=== PATIENT | female | born 1995 | race Hispanic/Latino ===

== ENCOUNTER 2023-04-09 01:44 | Emergency (ER) | payer OTHER, SELFPAY ==
[2023-04-09 01:46] VITALS: BP 135/60; PULSE 90; RESP 16; TEMP 36.3; O2SAT 100
[2023-04-09 02:47] VITALS: BP 120/78; PULSE 84; RESP 20; O2SAT 100
--- NOTE | 2023-04-09 02:51 | ED.PREGNANCY ---
HPI - General Chief complaint: Vaginal Bleeding <Bright Quan DO - Last Filed: 04/09/23 07:38> Stated complaint: 9 weeks , vaginal bleeding <Bright Quan DO - Last Filed: 04/09/23 07:38> Time Seen by Provider: 04/09/23 02:38 <Bright Quan DO - Last Filed: 04/09/23 07:38> Source: patient <Bright Quan DO - Last Filed: 04/09/23 07:38> Limitations: no limitations <Bright Quan DO - Last Filed: 04/09/23 07:38> History of Present Illness HPI Narrative: Patient is a 27-year-old female present to the emergency department complaining of vaginal bleeding. Patient states that she is approximately 9 weeks and is known to [facility] and taking vitamins and has had an ultrasound already performed and has no coming following appointment in a couple weeks on April 28 and states that approximate 11 PM when she was having sex afterwards she noticed some vaginal bleeding, notes that it was a mild amount and has not had any significant increase since and has not been wearing any pads, denies any abdominal pain or pelvic pain or recent injuries or history of bleeding disorders. Patient denies any burning when she pees, frequent urination, urgency. Patient states that this is her second and her first was uncomplicated with a full-term . Patient denies lightheadedness, chest pain, shortness of breath, fever, diarrhea, melena, hematochezia. Patient does admit to some mild vaginal itching this week. Patient denies any abnormal vaginal discharge or loss of fluids. <Bright Quan DO - Last Filed: 04/09/23 07:38> Related Data Allergies/Adverse reactions: Allergies Allergy/AdvReac Type Severity Reaction Status Date / Time No Known Allergies Allergy Unverified 09/30/16 15:29 <Bright Quan DO - Last Filed: 04/09/23 07:38> Review of Systems Review of Systems: A 10 system review of systems was completed on the patient and is negative except for what is stated in the HPI. Nursing and ancillary documentation was reviewed. <DO Marilia Marrero Last Filed: 04/09/23 07:38> PMFSH Comments At time of signature, I have reviewed and agree with nursing past medical, surgical, social and family history unless otherwise noted. Please see the nursing chart for further information. There is no relevant family history pertinent to the presenting complaint. <Bright Quan DO - Last Filed: 04/09/23 07:38> Exam Narrative: CONST: No acute distress. Well nourished. HENMT: Head is normocephalic and atraumatic. Moist mucous membranes. No posterior oropharynx erythema. EYES: No conjunctival icterus, injection, or pallor. PERRL. NECK: No meningeal signs. RESP: Able to speak in full sentences. Normal respiratory effort. CTAB. CARDIO: Regular rate. Regular rhythm. 2+ DP and radial pulses bilaterally. GI: Nondistended. No tenderness to palpation. Soft. : No CVA tenderness to palpation. Pelvic examination was done by myself with a female nurse health insurance specialist. External genitalia appeared normal and without any lesions, erythema, or vaginal candidiasis. Speculum exam showed normal cervix without erythema, lesions or ulcerations. There was trace discharge and dark red blood present in the vaginal canal. Cervical os was closed and without discharge. SKIN: No rashes or lesions noted on exposed skin. NEURO: Oriented x3. Moves all extremities. EXTREM: No pedal edema. PSYCH: Normal affect. <Bright Quan DO - Last Filed: 04/09/23 07:38> Course Reevaluation(s) Reevaluation #1: Pt signed out to me pending swab results. Briefly, 27F 9wk preg p/w VB, IUP FHR 150 on BS US, p: GC results. These are neg; stable for dc w/ OB f/u and strict return precautions <Heather Sena MD - Last Filed: 04/09/23 08:51> Vital Signs Vital signs: Vital Signs Temperature 97.4 F L 04/09/23 01:46 Pulse Ra
[2023-04-09 03:17] LABS: Basophils Absolute Auto 0.1 K/mm3 (0.0-0.1); Basophils Percent Auto 0.3 % (0.2-1.2); Eosinophils Absolute Auto 0.1 K/mm3 (0-0.3); Eosinophils Percent Auto 0.7 % (0-4.4); Hematocrit 38.2 % (37.0-47.0); Hemoglobin 12.6 g/dL (12.0-15.0); Immature Granulocyte Percent A 0.6 % (0-0.5); Lymphocytes Absolute Auto 3.41 K/mm3 (0.9-3.2); Lymphocytes Percent Auto 21.3 % (18.3-44.2); Mean Corpuscular Hemoglobin 27.5 pg (26-34); Mean Corpuscular Volume 83.2 fl (80-100); Mean Platelet Volume 10.5 fl (7.4-10.4); Monocytes Absolute Auto 1.2 K/mm3 (0.1-0.6); Monocytes Percent Auto 7.4 % (2.6-8.5); Neutrophils Absolute Auto 11.2 K/mm3 (1.3-6.7); Neutrophils Percent Auto 69.7 % (45.5-73.1); Platelet Count Result 458 k/mm3 (150-375); Red Blood Count 4.59 M/mm3 (4.2-5.4); Red Cell Distribution Width 14.3 % (11.5-14.5)
[2023-04-09 03:25] LABS: Appearance Urine Cloudy (Clear); Bacteria Urine 1+ /hpf; Bilirubin Urine Negative (Negative); Blood Urine 3+ (Negative); Color Urine Dark Yellow (Yellow); Glucose Urine UA Negative (Negative); Ketones Urine 1+ mg/dL (Negative); Leukocyte Esterase Ur Trace LEU/UL (Negative); Nitrate Urine Negative (Negative); Non Pathogenic Casts 0-2; Protein Urine 1+ mg/dL (Negative); Specific Grav Ur 1.027 (1.001-1.035); Squamous Epithelial Cell Urine Few /hpf (Few); WBC Urine 0-5 /hpf; pH Urine 6.5 (5.0-9.0)
[2023-04-09 03:28] LABS: Alanine Aminotransferase 22 U/L (6-35); Albumin Level 4.3 g/dL (3.5-5.1); Alkaline Phosphatase 74 U/L (38-126); Anion Gap 10 mmol/L (8-16); Aspartate Amino Transferase 24 U/L (14-36); Bilirubin,Total 0.6 mg/dL (0.2-1.3); Blood Urea Nitrogen 6 mg/dL (7-17); Calcium 9.3 mg/dL (8.4-10.2); Carbon Dioxide 24 mmol/L (22-30); Chloride 102 mmol/L (98-107); Estimated CRCL calculation 174 ml/min; Estimated Glomerular Filt Rate > 60; Glucose 108 mg/dL (65-110); Potassium 3.7 mmol/L (3.4-5.0); Sodium 136 mmol/L (137-145)
[2023-04-09 03:30] LABS: Add Urine Microscopic? YES
[2023-04-09 04:35] VITALS: BP 101/63; PULSE 67; RESP 15; O2SAT 100
[2023-04-09 05:50] VITALS: BP 121/64; PULSE 68; RESP 15; O2SAT 100
[2023-04-09] MEDS: CEPHALEXIN 500 MG CAPSULE PO (06:22)
[2023-04-09 07:30] VITALS: BP 107/68; PULSE 73; RESP 16; O2SAT 98
[2023-04-09 08:22] LABS: Trichomonas Vag PCR NOT DETECTED (NOT DETECTE)
[2023-04-09 08:47] LABS: Chlamydia trachomatis NOT DETECTED (NOT DETECTE); Neisseria gonorrhoeae PCR NOT DETECTED (NOT DETECTE)
[2023-04-09 09:00] VITALS: BP 113/68; PULSE 69; RESP 16; O2SAT 99
== END 2023-04-09 09:00 | disposition home or self-care (01) ==
PROVIDERS: Physician Assistant; Emergency Provider Student in an Organized Health Care Education/Training Program
DX: O20.0 Threatened abortion (principal); Z3A.09 9 weeks gestation of pregnancy
CPT/HCPCS: 36415; 80053; 81001; 84702; 85025; 85461; 86850; 86900; 86901; 87491; 87591; 87661; 99284; A9270

== ENCOUNTER 2023-07-17 16:17 | Outpatient (CLI) | payer OTHER, SELFPAY ==
--- NOTE | ~2023-07-17 | US_ITS ---
EXAMINATION: US OB /maternal detail DATE: 07/17/2023 18:27 INDICATION: Second trimester anatomic survey TECHNIQUE: Real-time ultrasound of the pelvis was performed. COMPARISON: None. FINDINGS: There is a single living fetus in transverse lie. The placenta is anterior and 3.5 cm from the journalism intern al cervical os. heart rate is 142 beats per minute (bpm). The cervical length measures 6.2 cm. cardiac activity and movement are noted. The amniotic fluid index is subjectively normal. There is suboptimal evaluation of the spine, four-chamber heart, and cerebral ventricles. The followi ng anatomy was identified as normal: 3 vessel cord cord insertion kidneys urinary bladder stomach diaphragm cisterna magna cerebellum The following biometric data were obtained: Biparietal diameter (BPD): 5.5 cm; head circumference (HC): 21.1 cm; abdominal circumference (AC): 19 .8 cm; femur length (FL): 4.3 cm. These measurements are concordant. Estimated weight is 665 g +/- 99 g, which correlates with the 56th percentile when 11/07/2023 is used as estimated date of delivery. As single measurements, these parameters are each equal to the following estimated gestational ages w ith ranges of +/- 2 standard deviations: BPD: 22 weeks 5 days +/- 1 weeks 5 days. HC: 23 weeks 1 days +/- 1 weeks 3 days. AC: 24 weeks 3 days +/- 2 weeks 1 days. FL: 24 weeks 2 days +/- 2 weeks 1 days. estimated gestational age based solely on measurements from this exam is 23 weeks 5 days +/- 1 weeks 5 days. IMPRESSION: 1. Single living fetus in transverse lie. 2. Estimated weight is 665 g +/- 99 g, which correlates with the 56th percentile when 11/07/2023 is used as estimated date of delivery. 3. Suboptimal evaluation of the spine, four-chamber heart, and cerebral ventricles. Reviewed, dictated and finalized at location F. OR GRANTS OFFICER IMPRESSION: 1. Single living fetus in transverse lie. 2. Estimated weight is 665 g +/- 99 g, which correlates with the 56th per centile when 11/07/2023 is used as estimated date of delivery. 3. Suboptimal evaluation of the spine, four-chamber heart, and cerebral ventric les.
== END 2023-07-17 16:18 | disposition home or self-care (01) ==
LOC: ANHIMG 16:20
PROVIDERS: Visit Provider Advanced Practice Midwife
DX: Z36.89 Encounter for other specified antenatal screening (principal)
CPT/HCPCS: 76805

== ENCOUNTER 2023-11-02 04:59 | Inpatient (IN) | payer OTHER, SELFPAY ==
[2023-11-02] VITALS (197 sets, daily range): BP systolic 86–157; BP diastolic 22–135; PULSE 57–269; RESP 15; TEMP 36.5–37.4; O2SAT 84–100; BMI 35.4
--- NOTE | 2023-11-02 05:40 | LDADM ---
This patient, Swathi Carmona, was admitted to Labor/Delivery/Recovery 107 on 11/02/23 at 04:59. Plans for labor, pain management and were discussed with patient. Patient/family oriented to hospital policies and general routines including ID bracelet, bed and alarms, visiting hours, pain management, procedures, bathroom and other care routines, personal items, smoking policy, room service/diet and guest tray routines, security routines, and visiting hours. Patient/Family are encouraged to report perceived risks to care and to ask questions if they do not understand what they are told or what they should do. See OBIX for further documentation.
[2023-11-02 06:08] LABS: Basophils Percent Auto 0.3 % (0.2-1.2); Eosinophils Absolute Auto 0.1 K/mm3 (0-0.3); Eosinophils Percent Auto 0.8 % (0-4.4); Hematocrit 34.3 % (37.0-47.0); Hemoglobin 11.4 g/dL (12.0-15.0); Immature Granulocyte Absolute 0.08 K/mm3 (0.00-0.031); Immature Granulocyte Percent A 0.7 % (0-0.5); Lymphocytes Absolute Auto 2.97 K/mm3 (0.9-3.2); Lymphocytes Percent Auto 24.9 % (18.3-44.2); Mean Corpuscular HGB Conc 33.2 g/dl (32-36); Mean Corpuscular Hemoglobin 27.4 pg (26-34); Mean Corpuscular Volume 82.5 fl (80-100); Mean Platelet Volume 11.2 fl (7.4-10.4); Monocytes Percent Auto 8.6 % (2.6-8.5); Neutrophils Absolute Auto 7.7 K/mm3 (1.3-6.7); Neutrophils Percent Auto 64.7 % (45.5-73.1); Platelet Count Result 384 k/mm3 (150-375); Red Blood Count 4.16 M/mm3 (4.2-5.4); Red Cell Distribution Width 13.8 % (11.5-14.5); White Blood Count 11.9 K/mm3 (4.5-10.0)
[2023-11-02] MEDS: LACTATED RINGERS 1,000 ML 125 ML IV CONT ×3 (06:21→12:39)
[2023-11-02] MEDS: OXYTOCIN 30 UNITS/NS 500 ML 30 UNITS/500 ML BAG IV CONT (06:25)
--- NOTE | 2023-11-02 06:43 | P.PNAN_ITS ---
Anes - Eval Pre Procedure Procedure: labor epidural Date/Time: 11/02/23 06:43 Surgeon: lashell Preop Diagnosis: pain during labor Pre Op Diagnosis: IOL Patient Data Age: 28 Gender: F Height: 1.63 m Weight: 93.6 kg Last Vital Signs Pulse 125 H 11/02/23 06:30 BP 106/69 11/02/23 06:30 Pulse Ox 97 11/02/23 06:42 O2 Del Method Room Air 11/02/23 06:09 Allergies Allergy/AdvReac Type Severity Reaction Status Date / Time No Known Allergies Allergy Verified 11/02/23 06:16 Home Medications Medication Instructions Recorded Confirmed Type 11/02/23 History Laboratory Tests 11/02/23 05:37 WBC 11.9 H K/mm3 (4.5-10.0) RBC 4.16 L M/mm3 (4.2-5.4) Hgb 11.4 L g/dL (12.0-15.0) Hct 34.3 L % (37.0-47.0) MCV 82.5 fl (80-100) MCH 27.4 pg (26-34) MCHC 33.2 g/dl (32-36) RDW 13.8 % (11.5-14.5) Plt Count 384 H k/mm3 (150-375) MPV 11.2 H fl (7.4-10.4) Immature Gran % (Auto) 0.7 H % (0-0.5) Neut % (Auto) 64.7 % (45.5-73.1) Lymph % (Auto) 24.9 % (18.3-44.2) [place] % (Auto) 8.6 H % (2.6-8.5) Eos % (Auto) 0.8 % (0-4.4) Baso % (Auto) 0.3 % (0.2-1.2) Lymph # (Auto) 2.97 K/mm3 (0.9-3.2) [place] # (Auto) 1.0 H K/mm3 (0.1-0.6) Eos # (Auto) 0.1 K/mm3 (0-0.3) Baso # (Auto) 0.0 K/mm3 (0.0-0.1) Abs Immat Gran (auto) 0.08 H K/mm3 (0.00-0.031) Absolute Neuts (auto) 7.7 H K/mm3 (1.3-6.7) Absolute Nucleated RBC 0.000 K/mm3 (0.0-0.012) Nucleated RBC % 0.0 % (0.0-0.2) RPR Pending Blood Type A Positive Antibody Screen Pending Patient hx anesthesia problems: none Family hx anesthesia problems: none Results Review: All pre-operative results and documents have been reviewed as part of the pre- operative evaluation. [facility] Past Medical History Medical History (Updated 11/02/23 @ 06:44 by Celia Hood CRNA) IUP (intrauterine ), incidental Obesity (BMI 30-39.9) Family History Family History (Updated 10/22/23 @ 14:41 by Norma Webb RN) Other No pertinent family history Social History Social History Smoking status: Never smoker Second hand tobacco smoke exposure: No Substance use: never Do You Feel Safe in your Home?: Yes Lack of Transportation: No Lack of Food: Never True Current Housing: I Have Housing Concerned About Future Housing: No Difficulty Paying Gas/Electric Bills: No Difficulty Paying for Meds: No Currently Unemployed: No Education: Grade School Difficulty w/ Childcare or Family Care: No Spiritual care concerns: No Exam Day of Procedure 11/02/23 06:43
--- NOTE | 2023-11-02 07:43 | WPDOBADMIT ---
Obstetrics - Admit Note Admission Note: record reviewed. No pertinent additions to the history and/or any subsequent changes in the physical findings that are not consistent with the expected course of the were found. Additions to the history and/or subsequent changes in the physical findings follow. None.
--- NOTE | 2023-11-02 08:02 | PM.OBPNLAB ---
Pain Control Date/time seen: 11/02/23 0796 Pain control: tolerating well Pelvic Exam Dilation (cm): 2 Effacement (%): 50 station: -3 Amniotic membrane status: Intact Contractions Monitor mode: External Contraction pattern: Irregular Status status: Category l Assessment and Plan Assessment: induction ongoing Comments: CNM to bedside. Discussed plan of care an option for amniotomy. Discussed risks, benefits, and expectations of breaking water. Patient is agreeable. Amniotomy performed and there was a moderate return of clear amniotic fluid. Patient tolerated procedure well. Anticipate vaginal . Dr. Domingo updated.
[2023-11-02 08:44] LABS: Glucose Point of Care 120 mg/dl (65-105)
[2023-11-02 10:57] LABS: Glucose Point of Care 108 mg/dl (65-105)
[2023-11-02 14:35] LABS: Glucose Point of Care 84 mg/dl (65-105)
[2023-11-02 14:35] LABS: Rapid Plasma Reagin Non-Reactive (NonReactive)
--- NOTE | 2023-11-02 14:46 | PM.OBPNLAB ---
Pain Control Date/time seen: 11/02/23 14:46 Pain control: tolerating well and epidural Pelvic Exam Comments: 8cm per RN last exam Contractions Monitor mode: External Contraction frequency: 2 (2-2.5) Contraction duration: 60 Contraction pattern: Irregular Status status: Category ll Assessment and Plan Assessment: active labor Plan: continuous present management Comments: Spoke with RN. If variable decelerations do not resolve with position change or increase in length/depth, plan amnioinfusion. Dr. Domingo updated. Anticipate vaginal .
[2023-11-02] MEDS: OXYTOCIN 30 UNITS/NS 500 ML 30 UNITS/500 ML BAG 125 UNITS IV CONT (16:45)
--- NOTE | 2023-11-02 17:00 | P.PCNOB_ITS ---
OB - Vaginal Delivery Note Procedure Delivery date: 11/02/23 Events: Gestational Diabetes (GDMA2) Induction method: Per Pitocin Protocol Delivery augmentation: Rupture of Membranes Delivery monitor: External FHT and Internal Uterine Route of delivery: Episiotomy description: None Laceration Description: Labial (left labial) and Superficial Delivery repair: vicryl Specimen: Yes (placenta) Quantitative Blood Loss (ml): 125 Anesthesia type: Epidural Disposition: Floor Complications: Other complications (shoulder dystocia) Narrative: Swathi arrived for induction of labor secondary to gestational diabetes. she received Pitocin and made steady change to complete dilation. She pushed very well and delivered head over an intact perineum. No restitution was observed. With the next push there was some movement of the anterior shoulder but did not completely deliver. A shoulder dystocia was called and patient assisted to make Canela position. There is no further descent of the anterior shoulder. CNM placed hand on posterior arm and posterior shoulder delivered 1st followed by the anterior shoulder. The nuchal cord was reduced and the infant was placed on the maternal abdomen. The cord was doubly clamped and cut and the infant was taken to the warmer for assessment by the pediatric team. Cord blood, cord segment, and cord gases were obtained. A left labial laceration was repaired in the usual fashion. Mother and baby skin to skin in the delivery room. All delivery counts correct. There was excellent hemostasis. [place] Baby Date of : 11/02/23 Time of : 16:22 Weeks of gestation at delivery: 39 gender: Male Weight (pounds): 8 Weight (ounces): 4 presentation: vertex position: Right Occiput Anterior Placenta delivery description: Spontaneous and Normal Configuration Cord Vessel Description: 3 Vessels, Nuchal Cord and Tight score one minute: 7 score five minutes: 8
--- NOTE | 2023-11-02 17:06 | PM.OBDSVD ---
DS: Admitting Diagnosis Discharge Date 11/03/23 Admitting Diagnosis 28 y.o. at 39 weeks GDMA2 Rubella Non Immune IOL DS: Discharge Diagnosis Discharge Diagnosis (1) GDM, class A2: Code(s): O24.419 - Gestational diabetes mellitus in , unspecified control Status: Acute (2) Mother currently breast-feeding: Code(s): Z39.1 - Encounter for care and examination of lactating mother Status: Acute (3) (normal spontaneous vaginal delivery): Code(s): O80 - Encounter for full-term uncomplicated delivery Status: Acute (4) Rubella non-immune status, delivered, current hospitalization: Code(s): O99.892 - Other specified diseases and conditions complicating childbirth; Z28.39 - Other underimmunization status Status: Acute OB - DS: Summary Hospital Course Hospital Course: Uncomplicated OB Procedures : NST and Ultrasound OB Procedures Intrapartum: Spontaneous Vag Delivery OB Procedures: : Rubella lg Peripartum Data Delivery Method: Natural Vaginal Laceration Description: Labial (left labial) and Superficial Episiotomy description: None complications: none Time Spent with Patient Time attestation: Total time spent providing and/or coordinating discharge services: Exam Narrative: Alert and oriented. Mood is pleasant and cooperative. Perineum with minimal edema. Fundus firm and below umbilicus. Const: General: cooperative, healthy appearing, no acute distress and alert Orientation/consciousness: patient oriented x3 Limitations: no limitations Resp: Effort & Inspection: normal respiratory effort and able to speak in complete sentences Auscultation: clear to auscultation bilaterally Cardio: Rate: regular rate GI: Inspection: normal to inspection Auscultation: normal bowel sounds : General: Yes bladder normal to palpation External Female Exam: other (lochia WNL) Bimanual exam- vagina & uterus: bladder normal to palpation Other: Fundus firm and below U Skin: General skin exam: normal color and no rashes or lesions noted Neuro: General: patient oriented x3 and moves all extremities Cognition (Neuro): normal cognition Extrem: General: normal to inspection and no calf tenderness Psych: Appearance: grossly normal Mental Status: mental status grossly normal Affect: normal affect Thought process: Normal thought process present DS: Data Data Completed and Pending Labs on day of discharge: Labs from last 24 hours 05/11/02/23 11/02/23 14:31 10:55 08:40 WBC RBC Hgb Hct MCV MCH MCHC RDW Plt Count MPV Immature Gran % (Auto) Neut % (Auto) Lymph % (Auto) [place] % (Auto) Eos % (Auto) Baso % (Auto) Lymph # (Auto) [place] # (Auto) Eos # (Auto) Baso # (Auto) Abs Immat Gran (auto) Absolute Neuts (auto) Absolute Nucleated RBC Nucleated RBC % POC Capillary Glucose 84 108 H 120 H RPR Blood Type Antibody Screen 11/02/23 05:37 WBC 11.9 H RBC 4.16 L Hgb 11.4 L Hct 34.3 L MCV 82.5 MCH 27.4 MCHC 33.2 RDW 13.8 Plt Count 384 H MPV 11.2 H Immature Gran % (Auto) 0.7 H Neut % (Auto) 64.7 Lymph % (Auto) 24.9 [place] % (Auto) 8.6 H Eos % (Auto) 0.8 Baso % (Auto) 0.3 Lymph # (Auto) 2.97 [place] # (Auto) 1.0 H Eos # (Auto) 0.1 Baso # (Auto) 0.0 Abs Immat Gran (auto) 0.08 H Absolute Neuts (auto) 7.7 H Absolute Nucleated RBC 0.000 Nucleated RBC % 0.0 POC Capillary Glucose RPR Non-reactive Blood Type A Positive Antibody Screen Negative Discharge Plan Discharge Attending physician on discharge: Heide Domingo Consulting providers: Gala Montgomery Discharging Clinician: Gala Montgomery Anticipated Discharge Date/Time: 11/02/23 17:08 Patient Disposition: Home, Self-Care Activity: may shower and pelvic rest Diet: as tolerated and regular Wound Care Instruct
[2023-11-02] MEDS: ACETAMINOPHEN 325 MG TABLET 650 MG PO (19:51)
[2023-11-02] MEDS: IBUPROFEN 600 MG TABLET PO (19:53)
[2023-11-02] MEDS: DOCUSATE SODIUM 100 MG CAPSULE PO (19:53)
--- NOTE | 2023-11-02 21:26 | OBPPTRN ---
Patient transferred to post room #282 via wheelchair. Support person present. Oriented to unit, room, information board, rooming in, admission packet and security measures. Patient verbalizes understanding.
[2023-11-03 00:20] VITALS: BP 128/65; PULSE 87; RESP 16; TEMP 37; O2SAT 99
[2023-11-03 05:06] LABS: Hematocrit 30.1 % (37.0-47.0); Hemoglobin 9.8 g/dL (12.0-15.0)
[2023-11-03 07:20] VITALS: BP 101/63; PULSE 85; RESP 16; TEMP 37.1; O2SAT 100
--- NOTE | 2023-11-03 07:36 | P.PNOB_ITS ---
OB - PN: Subj Subjective Date/time seen: 11/03/23 07:25 Interval history: Doing well. Urinating without difficulty. Denies passing any large clots. Denies dizziness with ambulating. Tolerating po food and fluids. Bonding with . Baby nursing well. Desires DC home today. Patient comments: no complaints and pain well controlled [place] baby status: nursing well feeding status: exclusively breast feeding OB - PN: Obj Data Labs 11/03/23 04:43 Labs: Laboratory Results - last 24 hr 11/02/23 11/02/23 11/02/23 05:37 08:40 10:55 Hgb Hct POC Capillary Glucose 120 H 108 H RPR Non-reactive 11/02/23 11/03/23 14:31 04:43 Hgb 9.8 L Hct 30.1 L POC Capillary Glucose 84 RPR OB - PN A/P Plan day: 1 Plan: discharge home Time Spent With Patient Time: Total time spent is greater than 50% in coordination of care (as documented) at patient's floor/unit and/or counseling patient: Review of Systems Review of Systems: All systems reviewed & are unremarkable except as noted in HPI and below Exam Narrative: Alert and oriented. Mood is pleasant and cooperative. Perineum with minimal edema. Fundus firm and below umbilicus. Const: General: cooperative, healthy appearing, no acute distress and alert Orientation/consciousness: patient oriented x3 Limitations: no limitations Resp: Effort & Inspection: normal respiratory effort and able to speak in complete sentences Auscultation: clear to auscultation bilaterally Cardio: Rate: regular rate GI: Inspection: normal to inspection Auscultation: normal bowel sounds : General: Yes bladder normal to palpation External Female Exam: other (lochia WNL) Bimanual exam- vagina & uterus: bladder normal to palpation Other: Fundus firm and below U Skin: General skin exam: normal color and no rashes or lesions noted Neuro: General: patient oriented x3 and moves all extremities Cognition (Neuro): normal cognition Extrem: General: normal to inspection and no calf tenderness Psych: Appearance: grossly normal Mental Status: mental status grossly normal Affect: normal affect Thought process: Normal thought process present
--- NOTE | 2023-11-03 08:49 | WPDANLDPN2 ---
Anes-Prog Note L&D Date/Time: 11/03/23 08:49 Comfortable throughout: labor and delivery Neuraxial method: epidural Epidural/Spinal procedure site: clean & non-tender Neuro status: Neuro function grossly intact. Cardiovascular status: normal Respiratory status: normal Airway patency: baseline Mental status: baseline Post-Op hydration status: normal Vital Signs: Last Vital Signs Temp 37.0 C 11/03/23 00:20 Pulse 87 11/03/23 00:20 Resp 16 11/03/23 00:20 BP 128/65 11/03/23 00:20 Pulse Ox 99 11/03/23 00:20 O2 Del Method Room Air 11/03/23 00:20 Pain score (VAS): /10 I/O: Intake & Output 11/02/23 11/03/23 11/03/23 23:59 07:59 15:59 Output Total 125 Balance -125 Post-procedural complaints: none Patient feedback: Patient satisfied with anesthetic care.
--- NOTE | 2023-11-03 09:33 | PC.NURSE ---
[id number] Mother is demonstrating effective on the right breast. She is using the cradle positioning, denies any nipple discomfort and responsively . demonstrate swallowing with deep dropping of the lower jaw and the ka sound. Mother declines any additional assistance or education at this time. Mother is encouraged to call for assistance if her doesn?t latch, pain with latching, questions or concerns. DESIRE RICKETTS name is written on the communication board. Mother voiced understanding of information.
[2023-11-03] MEDS: POLYSACCHARIDE IRON COMPLEX 150 MG CAPSULE PO ×2 (10:04→17:47)
[2023-11-03] MEDS: DOCUSATE SODIUM 100 MG CAPSULE PO ×2 (10:04→17:47)
[2023-11-03] MEDS: MULTIVIT/MIN/PREN/FOL AC/IRON TABLET 1 TAB PO (10:04)
[2023-11-03] MEDS: LANOLIN (LANSINOH) 7.5 GM CREAM 1 APPLIC TOPICAL (10:07)
[2023-11-03] MEDS: MEASLES,MUMPS,RUBELLA VACCINE 0.5 ML VIAL SUB-Q (17:47)
[2023-11-05 11:44] VITALS: BP 125/63; PULSE 83; RESP 18; TEMP 36.8; O2SAT 100
== END 2023-11-03 18:12 | disposition home or self-care (01) | DRG 560 ==
LOC: ANHLDR 17:09 → ANHOB2 19:10
PROVIDERS: Advanced Practice Midwife; Admitting Provider Obstetrics & Gynecology Gynecology; Visit Provider Obstetrics & Gynecology Gynecology
DX: O24.429 Gestational diabetes mellitus in childbirth, unspecified control (principal); O70.0 First degree perineal laceration during delivery; O66.0 Obstructed labor due to shoulder dystocia; O69.1XX0 Labor and delivery complicated by cord around neck, with compression, not applicable or unspecified; Z3A.39 39 weeks gestation of pregnancy; Z37.0 Single live birth
CPT/HCPCS: 36415; 82948; 85014; 85018; 85025; 86592; 86850; 86900; 86901; 88307; 90710; A9270; J2590; J2795; J7120

== ENCOUNTER 2024-03-16 21:06 | Emergency (ER) | payer OTHER, SELFPAY ==
[2024-03-16 21:30] VITALS: BP 124/70; PULSE 86; RESP 15; TEMP 36.3; O2SAT 98
[2024-03-16 21:58] LABS: Bacteria Urine None Seen /hpf; Need Manual Microscopic Reviewed; Non Pathogenic Casts 0-2; Squamous Epithelial Cell Urine Occasional /hpf (Few); WBC Urine 21-50 /hpf (0-3)
[2024-03-16 21:59] LABS: Add Urine Microscopic? YES; Appearance Urine Clear (Clear); Bilirubin Urine 1+ (Negative); Blood Urine 2+ (Negative); Color Urine Orange (Yellow); Glucose Urine UA Negative (Negative); Ketones Urine Negative (Negative); Leukocyte Esterase Ur 2+ LEU/UL (Negative); Nitrate Urine Positive (Negative); Protein Urine 2+ mg/dL (Negative); Specific Grav Ur 1.015 (1.001-1.035)
--- NOTE | 2024-03-17 00:18 | ED.FEMALEGU ---
HPI - Female Genitourinary General Chief complaint: Urogenital-Female Stated complaint: pain with urination Time Seen by Provider: 03/16/24 23:32 History of Present Illness HPI Narrative: 28 y/o F presents to the ED for pain with urination since this morning. She denies vaginal discharge, concern for STDs, hematuria, flank pain, fever, nausea or vomiting. She is reporting some suprapubic discomfort. States she has had UTIs in the past and this feels similar. She took azo this morning with little relief. Related Data Home Medications Medication Instructions Recorded Confirmed 11/02/23 Allergies Allergy/AdvReac Type Severity Reaction Status Date / Time No Known Allergies Allergy Verified 03/16/24 21:07 Review of Systems Review of Systems: All systems reviewed & are unremarkable except as noted in HPI and below PMFSH Past Medical History Medical History IUP (intrauterine ), incidental Obesity (BMI 30-39.9) Family History Family History Other No pertinent family history Social History Social History Smoking status: Never smoker Second hand tobacco smoke exposure: No Substance use: never Do You Feel Safe in your Home?: Yes Lack of Transportation: No Lack of Food: Never True Current Housing: I Have Housing Concerned About Future Housing: No Difficulty Paying Gas/Electric Bills: No Difficulty Paying for Meds: No Currently Unemployed: No Education: Grade School Difficulty w/ Childcare or Family Care: No Spiritual care concerns: No Exam Narrative: GENERAL: Well-appearing, well-nourished, and in no acute distress. HEAD: Normocephalic, atraumatic. ENT: Nares clear, no rhinorrhea or epistaxis. Mucous membranes moist. NECK: Supple. CHEST: Clear to auscultation. No respiratory distress. HEART: Regular rate and rhythm. No murmur heard. Normal peripheral pulses. ABDOMEN: Soft, nontender, nondistended, normal active bowel sounds. No CVA tenderness EXTREMITIES: Normal range of motion. No edema. SKIN: Warm, dry, no rash. NEURO: No focal deficits. Alert and oriented x3 Course Vital Signs Vital signs: Vital Signs Temperature 97.4 F L 03/16/24 21:30 Pulse Rate 86 03/16/24 21:30 Respiratory Rate 15 03/16/24 21:30 Blood Pressure 124/70 03/16/24 21:30 Pulse Oximetry 98 03/16/24 21:30 Oxygen Delivery Room Air 03/16/24 21:30 Temperature 97.4 F L 03/16/24 21:30 Pulse Rate 86 03/16/24 21:30 Respiratory Rate 15 03/16/24 21:30 Blood Pressure 124/70 03/16/24 21:30 Pulse Oximetry 98 03/16/24 21:30 Oxygen Delivery Room Air 03/16/24 21:30 MDM - Female Genitourinary MDM Narrative Medical decision making narrative: 28-year-old female presents to the emergency department with pain with urination since this morning. Vitals are stable. She is well-appearing on exam. Abdomen is soft and nontender. UA consistent with UTI with 20-50 wbc's, 2+ leuk esterase and positive nitrites. This was discussed with the patient she was started on Keflex for urinary tract infection. I have very low suspicion for a ureteral stone given no history of stones, no flank pain, she is resting comfortably in exam bed. Advised her to continue azo as needed for discomfort and follow-up closely with her PCP. Strict ED return precautions discussed. She is agreeable to plan verbalized understanding. Discharged in stable condition. Lab Data Labs: Lab Results 03/16/24 Range/Units 21:42 Urine Color [place] H (Yellow) Urine Appearance Clear (Clear) Urine pH 6.0 (5.0-9.0) Ur Specific [place] 1.015 (1.001-1.035) Urine Protein 2+ H (Negative) mg/dL Urine Glucose (UA) Negative (Negative) mg/dL Urine Ketones Negative (Negative) mg/dL Ur Blood (Man) 2
[2024-03-17 00:27] VITALS: BP 115/70; PULSE 76; RESP 20; TEMP 36.8; O2SAT 98
[2024-03-17] MEDS: CEPHALEXIN 500 MG CAPSULE PO (00:28)
== END 2024-03-17 00:35 | disposition home or self-care (01) ==
PROVIDERS: Emergency Medicine; Emergency Provider Physician Assistant
DX: N30.01 Acute cystitis with hematuria (principal); E66.9 Obesity, unspecified; Z68.34 Body mass index [BMI] 34.0-34.9, adult
CPT/HCPCS: 81001; 87077; 87086; 87088; 99283; A9270

== ENCOUNTER 2024-11-24 16:28 | Outpatient (CLI) | payer OTHER, SELFPAY ==
--- NOTE | ~2024-11-24 | US_ITS ---
EXAMINATION: US OB follow up DATE: 11/24/2024 17:02 INDICATION: Size greater than dates TECHNIQUE: Real-time transabdominal obstetric ultrasound. FINDINGS: Comparison ultrasound dated 07/08/2024 There is a single living fetus in vertex presentation. The placenta is anterior without placenta pre via. cardiac activity and movement is noted with a heart rate of 143 beats per minute. T he amniotic fluid volume is normal. JENNIFER measures 17.9 cm. The following biometric data were obtained: BPD: 81mm corresponds to gestational age 32 weeks 5 days. Head circumference: 317mm corresponds to gestational age 35 weeks 4 days. Abdominal circumference: 310mm corresponds to gestational age 34 weeks 6 days. Femur length: 70mm corresponds to gestational age 35 weeks 5 days. Estimated weight: 2557grams +/- 383grams, 23.6%. IMPRESSION: 1. Single living intrauterine in vertex presentation with an estimated gestational age of 35 weeks 5 days by inititial ultrasound. Appropriate interval growth. 2. Normal placenta. Reviewed, dictated and finalized at location B. IMPRESSION: 1. Single living intrauterine in vertex presentation with an estimat ed gestational age of 35 weeks 5 days by inititial ultrasound. Appropriate int erval growth. 2. Normal placenta.
== END 2024-11-24 16:29 | disposition home or self-care (01) ==
PROVIDERS: PCP Obstetrics & Gynecology Gynecology; Visit Provider Obstetrics & Gynecology Gynecology
DX: O36.63X0 Maternal care for excessive fetal growth, third trimester, not applicable or unspecified (principal)
CPT/HCPCS: 76816

== ENCOUNTER 2024-12-15 05:14 | Inpatient (IN) | payer OTHER, SELFPAY ==
[2024-12-15] VITALS (107 sets, daily range): BP systolic 86–134; BP diastolic 33–88; PULSE 60–292; RESP 16–18; TEMP 36.6–37.2; O2SAT 97–100; BMI 35.4
--- OUTSIDE RECORDS SUMMARY | 2024-12-15 05:20 | XMS_ITS | Encounter Summary ---
Author Organization [facility] Address 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
--- OUTSIDE RECORDS SUMMARY | 2024-12-15 05:20 | XMS_ITS | Clinical Summary ---
Author Organization [facility] Address [address] [place] [phone] Phone Care Team Providers Care Draw String Knotter Name Role Phone Unavailable Primary Care Provider Unavailabl e Encounters Date Type Department Care Team Description 12/13/2024 External Device Data [facility] Provider, Abstract 09/26/2024 10:35 AM CDT - 09/26/2024 11:59 PM CDT Hospital Encounter [facility] [address] [place] [address] Keven Conrad MD Discharge Disposition: Home or Self Care from Last 3 Months Social History Tobacco Use Types Packs/Day Years Used Date Smoking Tobacco: Never Assessed Comments Unknown Sex and Gender Information Value Date Recorded Sex Assigned at Not on file 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 Gender Identity Not on file Sexual Orientation Not on file Plan of Treatment Health Maintenance Due Date Last Done Comments DTAP/TDAP/TD VACCINES (1 - Tdap) 2014 HEPATITIS B VACCINES (1 of 3 - 19+ 3-dose series) 2014 HPV/Cotest (21-29) 2016 INFLUENZA VACCINE (#1) 2025 CERVICAL CANCER SCREENING 03/31/2026 PAP SMEAR 03/31/2026 03/31/2023 HPV VACCINES Aged Out No longer eligi ble based on patient's age to complete this topic Procedures Procedure Name Priority Date/Time Associated Diagnosis Comments US OB FOLLOW UP PER FETUS Routine 09/26/2024 11:39 AM CDT Encounter for follow-up ultrasound of anatomy from Last 3 Months Results * US OB FOLLOW UP PER FETUS (09/26/2024 11:39 AM CDT) Anatomical Region Laterality Modality Pelvis Ultrasound 09/26/2024 10:3 8 AM CDT Narrative 09/28/2024 10:58 AM CDT [facility] ----- Pat. Name: SWATHI CARMONA Study Date: 09/26/2024 10:38am Pat. NO: [id number] Referring MD: MARY PEOPLES MD Site: [place] Carriage Rider: Kia Stanley RDMS : 1995 Age: 29 ----- INDICATION ----- Maternal Obesity (BMI<40) Complicating Screening Follow-Up target to complete spine CODING ----- Diagnoses Z3A.27: Weeks of gestation O99.212: Obesity complicating Z36.2: Encounter for other screening follow-up Procedures 34532: Ultrasound, uterus, real time with image documentation, follow up, transabdominal approach per fetus HISTORY ----- OB History 3. Para 2 [place] children born living (T) 2 T2L2 METHOD ----- Transabdominal ultrasound examination ----- [place] . Number of fetuses: 1 DATING ----- GA by prior assessment 27 w + 5 d ERIBERTO by prior assessment: 12/21/2024 Method of dating: Restore dating from previous exam Assigned: based on stated ERIBERTO, selected on 08/15/2024 Assigned GA 27 w + 4 d Assigned ERIBERTO: 12/22/2024 GENERAL EVALUATION ----- Cardiac activity present. FHR 159 bpm. movements: present. Presentation: transverse hmr Placenta: Placental site: anterior Umbilical cord: Cord vessels: 3 vessel cord. Amniotic fluid: Amount of AF: normal amount. MVP 5.0 cm ANATOMY ----- The following structures appear normal: Heart / Thorax Cardiac rhythm. Abdomen Stomach. Bladder. Spine Cervical spine. Thoracic spine. Lumbar spine. Sacral spine. GROWTH OVERVIEW ----- Exam date GA BPD (mm) HC (mm) AC (mm) FL (mm) HL (mm) EFW (g) 08/15/2024 21w 4d 45.4 2% 180.6 6% 161.3 31% 36.1 36% 405 25% 09/12/2024 25w 4d 58.1 3% 228.8 10% 206.7 31% 45.1 18% 760 19% COMMENT ----- Patient's name and date of were verified by the associate merchandise planner prior to the exam IMPRESSION ----- [place] @ 27w 4d referred for completion of anatomy. - The fetus is in transverse lie. - Amniotic fluid indices are within normal limits. - Visualized anatomy is unremarkable including the previously suboptimal views. A follow up ultrasound at 32 weeks is recommended to check growth. Thank you for allowing us to participate in the care of this patient. ADDENDUM ----- RETRIGGER Procedure Note Shraddha Hazel MD - 10/24/2024 [facility] ----- Pat. Name:Lilli CARMONA Date:09/26/2024 10:38am Pat. NO: [id number] MD:MARY PEOPLES MD [facility]:Kia Stanley RDMS :1995Age:29 ----- INDICATION ----- Maternal Obesity (BMI<40) Complicating Screening Follow-Up target to completespine CODING ----- Diagnoses Z3A.27: Weeks of gestation O99.212: Obesity complicating Z36.2: Encounter for other screeningfollow-up Procedures [id number]: Ultrasound, uterus, real time withimage documentation, follow up, transabdominal approach per fetus HISTORY ----- OB History 3. Para 2 [place] children born living (T) 2 T2L2 METHOD ----- Transabdominal ultrasound examination ----- [place] . Number of fetuses: 1 DATING ----- GA by prior [id number] w + 5 d ERIBERTO by prior assessment:12/21/2024 Method of dating:Restore dating from previous exam Assigned:based on stated ERIBERTO, selected on 08/15/2024 Assigned GA27 w + 4 d Assigned ERIBERTO:12/22/2024 GENERAL EVALUATION ----- Cardiac activity present. FHR 159 bpm. movements: present.Presentation: transverse hmr Placenta: Placental site: anterior Umbilical cord: Cord vessels: 3 vessel cord. Amniotic fluid: Amount of AF: normal amount. MVP 5.0 cm ANATOMY ----- The following structures appear normal: Heart / Thorax Cardiac rhythm. Abdomen Stomach. Bladder. Spine Cervical spine. Thoracic spine. Lumbar spine.Sacral spine. GROWTH OVERVIEW ----- Exam date GA BPD (mm) HC (mm) AC (mm) FL(mm) HL (mm) EFW (g) 08/15/2024 21w 4d 45.4 2% 180.6 6% 161.3 31%36.1 36% 405 25% 09/12/2024 25w 4d 58.1 3% 228.8 10% 206.7 31%45.1 18% 760 19% COMMENT ----- Patient's name and date of were verified by the associate merchandise planner prior tothe exam IMPRESSION ----- [place] @ 27w 4d referred for completion of anatomy. - The fetus is in transverse lie. - Amniotic fluid indices are within normal limits. - Visualized anatomy is unremarkable including the previouslysuboptimal views. A follow up ultrasound at 32 weeks is recommended to check growth. Thank you for allowing us to participate in the care of this patient. ADDENDUM ----- RETRIGGER Keven Conrad MD ORDERABLES Edited Res ult - Final from Last 3 Months Insurance MEDICAID [facility] Address: [address] [address]
[2024-12-15 05:55] LABS: Hematocrit 35.7 % (37.0-47.0); Hemoglobin 11.0 g/dL (12.0-15.0); Immature Granulocyte Percent A 0.5 % (0-0.5); Lymphocytes Absolute Auto 2.59 K/mm3 (0.9-3.2); Mean Corpuscular HGB Conc 30.8 g/dl (32-36); Mean Corpuscular Hemoglobin 25.9 pg (26-34); Mean Corpuscular Volume 84.0 fl (80-100); Nucleated Red Blood Cells Absolute Auto 0.000 K/mm3 (0.0-0.012); Nucleated Red Blood Cells Perc 0.0 % (0.0-0.2); Platelet Count Result 300 k/mm3 (150-375); Red Blood Count 4.25 M/mm3 (4.2-5.4); White Blood Count 10.4 K/mm3 (4.5-10.0)
[2024-12-15] MEDS: LACTATED RINGERS 1,000 ML 125 ML IV CONT ×3 (05:58→12:59)
[2024-12-15] MEDS: OXYTOCIN 30 UNITS/NS 500 ML 30 UNITS/500 ML BAG IV CONT (05:58)
[2024-12-15 06:42] LABS: Syphilis IgG/IgM Antibody Non-Reactive (Nonreactive)
--- NOTE | 2024-12-15 07:45 | WPDOBADMIT ---
Obstetrics - Admit Note Admission Note: record reviewed. Pertinent additions to the history and/or any subsequent changes in the physical findings that are not consistent with the expected course of the were found. Additions to the history and/or subsequent changes in the physical findings follow. Here for MIL @39 wks. Cervix 4-5/50/-2 AROM with clear fluid. FHTs cat. I. Pitocin per protocol
--- NOTE | 2024-12-15 15:06 | P.PNAN_ITS ---
Anes - Initial Pre Proc Eval Date/Time: 12/15/24 15:06 Surgeon: Heide Domingo MD Pre Op Diagnosis: IOL Patient Data Age: 29 Gender: F Height: 1.57 m Weight: 88 kg Last Vital Signs Temp 36.6 C 12/15/24 06:00 Pulse 62 12/15/24 15:01 BP 113/54 L 12/15/24 15:01 Pulse Ox 100 12/15/24 15:05 O2 Del Method Room Air 12/15/24 06:05 Allergies Allergy/AdvReac Type Severity Reaction Status Date / Time No Known Allergies Allergy Verified 12/15/24 06:03 Home Medications ?Medication ?Instructions ?Recorded ?Confirmed ?Type 11/02/23 History Laboratory Tests 12/15/24 05:43 WBC 10.4 H K/mm3 (4.5-10.0) RBC 4.25 M/mm3 (4.2-5.4) Hgb 11.0 L g/dL (12.0-15.0) Hct 35.7 L % (37.0-47.0) MCV 84.0 fl (80-100) MCH 25.9 L pg (26-34) MCHC 30.8 L g/dl (32-36) RDW 14.0 % (11.5-14.5) Plt Count 300 k/mm3 (150-375) MPV 11.3 H fl (7.4-10.4) Immature Gran % (Auto) 0.5 % (0-0.5) Neut % (Auto) 65.1 % (45.5-73.1) Lymph % (Auto) 24.9 % (18.3-44.2) [place] % (Auto) 8.2 % (2.6-8.5) Eos % (Auto) 1.0 % (0-4.4) Baso % (Auto) 0.3 % (0.2-1.2) Lymph # (Auto) 2.59 K/mm3 (0.9-3.2) [place] # (Auto) 0.9 H K/mm3 (0.1-0.6) Eos # (Auto) 0.1 K/mm3 (0-0.3) Baso # (Auto) 0.0 K/mm3 (0.0-0.1) Abs Immat Gran (auto) 0.05 H K/mm3 (0.00-0.031) Absolute Neuts (auto) 6.8 H K/mm3 (1.3-6.7) Absolute Nucleated RBC 0.000 K/mm3 (0.0-0.012) Nucleated RBC % 0.0 % (0.0-0.2) Syphilis IgG/IgM Ab Non-reactive (Nonreactive) Blood Type A Positive Antibody Screen Negative Patient hx anesthesia problems: none Family hx anesthesia problems: none Results Review: All pre-operative results and documents have been reviewed as part of the pre- operative evaluation. [facility] Past Medical History Medical History Obesity (BMI 30-39.9) IUP (intrauterine ), incidental Family History Family History Other No pertinent family history Social History Social History Smoking status: Never smoker Second hand tobacco smoke exposure: No Substance use: never Do You Feel Safe in your Home?: Yes Lack of Transportation: No Lack of Food: Never True Current Housing: I Have Housing Concerned About Future Housing: No Difficulty Paying Gas/Electric Bills: No Difficulty Paying for Meds: No Currently Unemployed: YES Education: Grade School Difficulty w/ Childcare or Family Care: No Spiritual care concerns: No Anes - Eval Final PreProcedure Day of Procedure 12/15/24 15:06 Patient weight: obese Heart: regular rate and rhythm Lungs: clear to auscultation Neurological: alert and oriented ASA classification: II Emergent: no Anesthetic plan: proceed Anesthesia type and monitoring: regional epidural and standard monitoring Results Review: All pre-operative results and documents have been reviewed as part of the pre- operative evaluation. Informed Consent: The patient's anesthetic plan and its attendant risks and benefits were discussed with the patient/family/POA. Questions were solicited and answers provided to the satisfaction of the patient/family/POA.
[2024-12-15] MEDS: OXYTOCIN 30 UNITS/NS 500 ML 30 UNITS/500 ML BAG 999 UNITS IV CONT (16:31)
--- NOTE | 2024-12-15 16:38 | PM.OBPRVD ---
OB - Vaginal Delivery Note Procedure Delivery date: 12/15/24 Events: Other (MIL 39 wks) Induction method: AROM and Per Pitocin Protocol Delivery monitor: External FHT and External Uterine Route of delivery: Episiotomy description: None Laceration Description: Labial (left labia minora at clitoral insertion site) Delivery repair: vicryl (3-0) Specimen: No Quantitative Blood Loss (ml): 150 Anesthesia type: Epidural Disposition: Floor Complications: No immediate complications Hanna Baby Date of : 12/15/24 Gestational Age by Date: 39 gender: Female presentation: vertex position: Right Occiput Anterior Placenta delivery description: Spontaneous Cord Vessel Description: 3 Vessels and Delayed Cord Clamping score one minute: 8 score five minutes: 9
--- NOTE | 2024-12-15 16:40 | PM.OBDSVD ---
DS: Admitting Diagnosis Discharge Date 12/16/24 Admitting Diagnosis IUP 39 wks MIL DS: Discharge Diagnosis Discharge Diagnosis (1) (normal spontaneous vaginal delivery): Code(s): O80 - Encounter for full-term uncomplicated delivery Status: Acute OB - DS: Summary OB Procedures : Ultrasound OB Procedures Intrapartum: Spontaneous Vag Delivery OB Procedures: : None Peripartum Data Infant Delivery Method: Natural Vaginal Laceration Description: Labial (left labia minora at clitoral insertion site) Episiotomy description: None complications: none Status at Discharge Functional status at discharge: independent ambulation Overall status at discharge: patient is progressing back to baseline Time Spent with Patient Time attestation: Total time spent providing and/or coordinating discharge services: DS: Data Data Completed and Pending Labs on day of discharge: Labs from last 24 hours 12/15/24 05:43 WBC 10.4 H RBC 4.25 Hgb 11.0 L Hct 35.7 L MCV 84.0 MCH 25.9 L MCHC 30.8 L RDW 14.0 Plt Count 300 MPV 11.3 H Immature Gran % (Auto) 0.5 Neut % (Auto) 65.1 Lymph % (Auto) 24.9 [place] % (Auto) 8.2 Eos % (Auto) 1.0 Baso % (Auto) 0.3 Lymph # (Auto) 2.59 [place] # (Auto) 0.9 H Eos # (Auto) 0.1 Baso # (Auto) 0.0 Abs Immat Gran (auto) 0.05 H Absolute Neuts (auto) 6.8 H Absolute Nucleated RBC 0.000 Nucleated RBC % 0.0 Syphilis IgG/IgM Ab Non-reactive Blood Type A Positive Antibody Screen Negative Discharge Plan Discharge Attending physician on discharge: Heide Domingo Discharging Clinician: Heide Domingo Anticipated Discharge Date/Time: 12/17/24 16:41 Patient Disposition: Home Activity: may shower and pelvic rest Diet: regular Patient Instructions: Antibiotic Form Patient Language: Bulgarian Stand Alone Forms: General Discharge Information Follow-up/Referrals: Heide Domingo MD [Physician] - 6 Weeks Discharge Medications: Continued Date of admission: 12/15/24 05:14 Primary Care Provider: PHYSICIAN,SOCIAL WELFARE RESEARCH WORKER Admitting Provider: Heide Domingo Attending physician on admission: Heide Domingo Condition: Stable
[2024-12-15] MEDS: OXYTOCIN 30 UNITS/NS 500 ML 30 UNITS/500 ML BAG 125 UNITS IV CONT (17:04)
[2024-12-15] MEDS: BENZOCAINE 20% AER SPR (*SP) 56 GM CAN 1 SPRAY TOPICAL (18:43)
[2024-12-15] MEDS: WITCH HAZEL 40 PADS 1 PAD TOPICAL (18:43)
--- NOTE | 2024-12-15 19:02 | OBPPTRN ---
Patient transferred to post room #288 via wheelchair. Support person present. Oriented to unit, room, information board, rooming in, admission packet and security measures. Patient verbalizes understanding.
[2024-12-16 00:15] VITALS: BP 103/60; PULSE 92; RESP 18; TEMP 37; O2SAT 100
[2024-12-16 04:40] VITALS: BP 102/56; PULSE 80; RESP 16; TEMP 36.3; O2SAT 100
[2024-12-16 05:35] LABS: Hematocrit 30.5 % (37.0-47.0); Hemoglobin 9.9 g/dL (12.0-15.0)
[2024-12-16 07:45] VITALS: BP 112/71; PULSE 68; RESP 16; TEMP 36.8; O2SAT 100
[2024-12-16] MEDS: MULTIVIT/MIN/PREN/FOL AC/IRON TABLET 1 TAB PO (07:45)
[2024-12-16] MEDS: DOCUSATE SODIUM 100 MG CAPSULE PO (07:45)
[2024-12-16] MEDS: IBUPROFEN 600 MG TABLET PO (07:46)
[2024-12-16 07:50] VITALS: PULSE 68; RESP 16; O2SAT 100
[2024-12-16 08:30] VITALS: BP 109/63; PULSE 73; RESP 18; TEMP 36.5; O2SAT 100
--- NOTE | 2024-12-16 10:51 | P.PNOB_ITS ---
OB - PN: Subj Subjective Date/time seen: 12/16/24 10:51 Patient comments: no complaints and pain well controlled baby status: doing well OB - PN: Obj Data Labs 12/16/24 04:25 Labs: Laboratory Results - last 24 hr 12/16/24 04:25 Hgb 9.9 L Hct 30.5 L OB - PN A/P Plan day: 1 Plan: routine care, discharge home, follow up 6 weeks and other (Plans Bienvenido) Time Spent With Patient Time: Total time spent is greater than 50% in coordination of care (as documented) at patient's floor/unit and/or counseling patient: Exam 2 : Bimanual exam- vagina & uterus: other (Uterus firm, nt @U)
--- NOTE | 2024-12-16 12:29 | WPDANLDPN2 ---
Anes-Prog Note L&D Date/Time: 12/16/24 12:29 Comfortable throughout: labor and delivery Neuraxial method: epidural Epidural/Spinal procedure site: clean & non-tender Neuro status: Neuro function grossly intact. Cardiovascular status: normal Respiratory status: normal Airway patency: baseline Mental status: baseline Post-Op hydration status: normal Vital Signs: Last Vital Signs Temp 97.7 F 12/16/24 08:30 Pulse 73 12/16/24 08:30 Resp 18 12/16/24 08:30 BP 109/63 12/16/24 08:30 Pulse Ox 100 12/16/24 08:30 O2 Del Method Room Air 12/16/24 07:50 Pain score (VAS): 0 I/O: Intake & Output 12/15/24 12/16/24 12/16/24 23:59 07:59 15:59 Output Total 450 Balance -450 Post-procedural complaints: none Patient feedback: Patient satisfied with anesthetic care.
[2024-12-16 15:45] VITALS: BP 105/66; PULSE 62; RESP 16; TEMP 36.8; O2SAT 100
--- NOTE | 2024-12-16 16:19 | PC.NURSE ---
1563.Patient viewed the discharge video Mother & Baby Care, The First Two Weeks. Patient was given the opportunity and encouraged to ask questions. Patient verbalized understanding of information shared and has been given the mother/baby guide for home reference.
[2024-12-19 09:28] VITALS: BP 113/70; PULSE 76; RESP 18; TEMP 36.7; O2SAT 100
== END 2024-12-16 17:30 | disposition home or self-care (01) | DRG 560 ==
LOC: ANHLDR 16:42 → ANHOB2 19:00
PROVIDERS: Admitting Provider Obstetrics & Gynecology Gynecology; Visit Provider Obstetrics & Gynecology Gynecology
DX: O70.0 First degree perineal laceration during delivery (principal); Z37.0 Single live birth; Z3A.39 39 weeks gestation of pregnancy
CPT/HCPCS: 36415; 85014; 85018; 85025; 86593; 86850; 86900; 86901; A9270; J2590; J2795; J7120

== ENCOUNTER 2025-04-21 07:04 | Outpatient (CLI) | payer OTHER, SELFPAY ==
--- NOTE | ~2025-04-21 | US_ITS ---
EXAMINATION: US pelvic complete w TV, 04/21/2025 7:30 GROUND CONTROL APPROACH TECHNICIAN HISTORY: Missing IUD Comparison: None Technique: French-scale and color Doppler images were obtained. Findings: Uterus: Uterus anteverted 8.3 x 4.8 x 6.6 cm, IUD in appropriate location. . Endometrium 4 mm. Right Ovary:Right ovary 3 x 2.5 x 3 cm, no adnexal mass, normal flow. Left Ovary: Left ovary 2.8 x 1.8 x 3 cm, no adnexal mass, normal flow Free Fluid: None Impression: IUD in appropriate location Reviewed, dictated and finalized at location P. ND CONTROL APPROACH TECHNICIAN Impression: IUD in appropriate location
== END 2025-04-21 07:05 | disposition home or self-care (01) ==
PROVIDERS: PCP Emergency Medicine
DX: T83.32XA Displacement of intrauterine contraceptive device, initial encounter (principal); Y83.8 Other surgical procedures as the cause of abnormal reaction of the patient, or of later complication, without mention of misadventure at the time of the procedure
CPT/HCPCS: 76830; 76856